=== PATIENT | female | born 1950 | race Caucasian/White ===

== ENCOUNTER → 2020-11-30 13:24 | Outpatient (BNVA) | payer MEDICARE, SELFPAY | PROVIDERS: Visit Provider Family Medicine | DX: M25.551 Pain in right hip (principal); G89.29 Other chronic pain | CPT/HCPCS: 73502 ==

== ENCOUNTER → 2020-12-19 16:08 | Day surgery (SDC) | payer MEDICARE, SELFPAY | PROVIDERS: Visit Provider Specialist | DX: Z01.818 Encounter for other preprocedural examination (principal) | CPT/HCPCS: 93005 ==

== ENCOUNTER → 2020-12-19 17:00 | Outpatient (BNVA) | payer MEDICARE, SELFPAY | PROVIDERS: Referring Provider Family Medicine; Visit Provider Specialist | DX: M25.551 Pain in right hip (principal); M16.11 Unilateral primary osteoarthritis, right hip; Z01.818 Encounter for other preprocedural examination; Z20.822 Contact with and (suspected) exposure to COVID-19 | CPT/HCPCS: 87635 ==

== ENCOUNTER 2020-12-25 14:42 | Observation (INO) | payer MEDICARE, SELFPAY ==
--- NOTE | 2020-12-19 15:37 | P.ANESASSM_ITS ---
Pre-Anesthetic Assessment Pre-Anesthetic Assessment: Height/Weight: Height 1.65 m Preop Diagnosis: Hip pain Proposed Procedure: Operation Date: 12/25/20 07:45 Proposed Procedures p Total Hip Arthroplasty 05972 M16.9(Right) - Edith Driver MD Familial anesthetic complications: patient vomits immediately upon awakening (The very instant i wake up i always vomit) Social: Social History: No alcohol and No tobacco Exam: Pre-Anes Outpt Exam: alert, oriented x 3, clear to auscultation bilaterally and regular rate & rhythm Airway: Cervical ROM: WNL MP: 2 Dentition: Full CV/HEM: CV/HEM: CAD (stents in 2016 (was a deformity, not plaque)), HTN and DE (mild 2016) Comments: able to acheive 4 METS 6 months ago before pain became too bad Metabolic: Metabolic: Hyperlipidemia and Thyroid Musc/skel: Musc/skel: OA/DJD Anesthetic Plan: ASA status: 3 Anesthesia: General Risk of > 500 ml blood loss (7ml/kg in children): Yes, adequate IV access and fluids planned Other Pertinent Information: patient unfortunately took plavix late at [facility] on 12/18, so will not be 7 days PFSH Anesthesia PFSH: Social History Smoking and tobacco status: former smoker (30 years ago ) Data Anesthesia Cardiac Studies: No Data to Display
[2020-12-19 15:49] VITALS: BMI 26.9
--- NOTE | 2020-12-19 16:08 | ECG_ITS ---
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 Measurements Intervals [place] Rate: 77 P: 64 OR: 170 QRS: -11 QRSD: 66 T: 46 QT: 339 QTc: 386 Interpretive Statements SINUS RHYTHM LOW QRS VOLTAGE [QRS DEFLECTION < 0.5/1.0 mV IN LIMB/CHEST LEADS] ANTERIOR MYOCARDIAL INFARCTION , PROBABLY OLD [40+ ms Q WAVE AND/OR ST/T ABNORMALITY IN V3/V4] INFERIOR MYOCARDIAL INFARCTION , OF INDETERMINATE AGE [40+ ms Q WAVE AND/OR ST/T ABNORMALITY IN II/aVF] No previous ECG available for comparison Electronically Signed On 12-19-2020 19:44:31 CDT by Kalpesh Roman M.D. [id number]
[2020-12-19 16:21] LABS: Add Urine Microscopic? NO; Charge for UA Resulting for Rev
[2020-12-19 16:23] LABS: Basophils % 0.9 %; Eosinophils # 0.1 10^3/uL (0.0-0.8); Eosinophils % 2.9 %; Hematocrit 38.8 % (37.0-47.0); Hemoglobin 12.5 g/dL (11.5-15.3); Lymphocytes # 1.3 10^3/uL (0.8-4.8); Lymphocytes % 28.9 %; Mean Corpuscular HGB Conc 32.2 g/dL (30.0-36.0); Mean Corpuscular Volume 99.2 fl (81-99); Mean Platelet Volume 12.7 fL (7.4-10.4); Monocytes # 0.4 10^3/uL (0.2-0.9); Neutrophils # 2.64 10^3/uL (1.8-7.7); Neutrophils % 58.1 %; Nucleated Red Blood Cells % 0 %; Platelet Count 178 10^3/cmm (130-400); Red Blood Count 3.91 10^6/uL (4.1-5.3); Red Cell Distribution Width 12.4 % (12.1-15.1); White Blood Count 4.5 10^3/uL (4.0-10.0)
[2020-12-19 16:34] LABS: Bilirubin Urine Neg (Negative); Blood Urine Neg (Negative); Glucose Urine UA Norm (Normal); Ketones Urine Negative (Negative); Leukocyte Esterase Urine Negative (Negative); Nitrate Urine Negative (Negative); Protein Urine Neg (Negative); Urine Appearance Clear (CLEAR); Urine Color Yellow (Yellow); Urobilinogen Urine Neg (Negative); pH Urine 5 (5-7)
[2020-12-19 16:45] LABS: Alanine Aminotransferase 10 U/L (0-33); Alkaline Phosphatase 85 IU/L (35-105); Anion Gap 12.4 (5-19); Aspartate Amino Transferase 13 U/L (0-32); Blood Urea Nitrogen 13 mg/dL (8-23); Calcium 9.1 mg/dL (8.5-10.5); Carbon Dioxide 29 mmol/L (22-29); Chloride 103 mmol/L (98-107); Globulin 2.3 g/dL (1.3-4.6); Glomerular Filtration Rate 122.7 mL/min (90-130); Glucose 94 mg/dL (65-115); Osmolality Calculated 292 mOsm/kg (285-295); Potassium 3.4 mmol/L (3.5-5.1); Sodium 141 mmol/L (136-145); Total Bilirubin 0.3 mg/dL (0.15-1.2); Total Protein 6.3 g/dL (6.6-8.7)
[2020-12-25] VITALS (42 sets, daily range): BP systolic 134–171; BP diastolic 68–93; PULSE 62–94; RESP 10–18; TEMP 36.3–36.7; O2SAT 85–100; BMI 26.9
[2020-12-25] MEDS: CELEcoxib 200 mg Capsule 400 MG PO (06:34)
[2020-12-25] MEDS: acetaminophen 1,000 MG/100 ML PIGGYBACK 400 MG IV ×2 (06:34→17:38)
--- NOTE | 2020-12-25 06:34 | P.ANESUD_ITS ---
Pre-Anesthetic Update Pre-Anesthetic Assessment: Date of Surgery/Procedure: 12/25/20 Preop Mila gnosis: Severe osteoarthritis right hip Proposed Procedure: Operation Date: 12/25/20 07:00 Proposed Procedures p Total Hip Arthroplasty 05118 M16.9(Right) - Edith Driver MD Any changes to Pre-Anesthetic Assessment?: No Last Intake: Intake Last Liquid Date 12/24/20 Last Liquid Time 00:00 Last Solid Date 12/24/20 Last Solid Time 18:00 Vitals: Temperature 97.5 F L 12/25/20 06:14 Temperature Source Temporal Artery S can 12/25/20 06:14 Pulse Rate 94 12/25/20 06:14 Respiratory Rate 18 12/25/20 06:14 Blood Pressure 151/93 12/25/20 06:14 Blood Pressure Liliana n 112 12/25/20 06:14 Pulse Oximetry 92 12/25/20 06:14 Oxygen Delivery Me thod 12/25/20 06:15 Exam: Pre-Anes Outpt Exam: alert, oriented x 3, clear to auscultation bilaterally and regular rate & rhythm Cardiac Studies: No Data to Display
[2020-12-25] MEDS: sodium chloride 0.9% 1,000 ML 30 ML IV (06:45)
--- NOTE | 2020-12-25 06:55 | W.PM.OPSUD ---
Surgery/Procedure H&P Update DATE OF PROCEDURE: December 25, 2020 DATE H&P PERFORMED: 12/19/20 H&P UPDATE INFORMATION: I have reviewed H&P completed within last 30 days, I have examined patient prior to procedure, No changes to prior documentation and H&P is in [facility] on date indicated PREOP DIAGNOSIS: Severe osteoarthritis right hip PLANNED PROCEDURE: Operation Date: 12/25/20 07:00 Proposed Procedures p Total Hip Arthroplasty 81511 M16.9(Right) - Edith Driver MD Related Problem List Diagnoses (1) Primary osteoarthritis of right hip:
[2020-12-25] MEDS: scopolamine 1.5 Patch 1 PATCH TRANSDERMA (06:58)
[2020-12-25] MEDS: clindamycin 600 MG/50 ML PREMIX 100 MG IV (08:22)
[2020-12-25] MEDS: ceFAZolin 1,000 mg SDV 1000 MG IRRIGATION (08:57)
[2020-12-25] MEDS: vancomycin 1,000 MG SDV 1000 MG XX (09:15)
--- NOTE | 2020-12-25 11:19 | XRR_ITS ---
PROCEDURE INFORMATION: Exam: XR Pelvis Exam date and time: 12/25/2020 11:19 AM Age: 70 years old Clinical indication: Device placement; Other: Right total hip arthroplasty; Prior surgery; Surgery date: Post-operative (0-2 days); Additional info: Right total hip arthroplasty, low ap pelvis TECHNIQUE: Imaging protocol: XR pelvis. Views: 1 or 2 view. Total images: 1 COMPARISON: CR XR hip RT 2-3V wo/w pel* [id number] 11/30/2020 1:36 PM FINDINGS: Tubes, catheters and devices: The prosthesis appears near anatomic in positioning. No parallel lucencies adjacent to the prosthesis are seen to suggest loosening. No acute fractures, subluxation, nor dislocation. Bones/joints: Right hip arthroplasty is present. Mild degenerative changes in the left hip joint. Soft tissues: Skin evelio subcutaneous emphysema are present from recent surgery. XR/XR pelvis 1-2V* [id number] IMPRESSION: 1. Status post recent right hip arthroplasty without complication. 2. Mild degenerative changes in the left hip joint.
--- NOTE | 2020-12-25 11:37 | P.OP_ITS ---
Operative Report Date of procedure: December 25, 2020 Pre-op Diagnosis: Severe osteoarthritis right hip Post-op diagnosis: same Post-op Findings: Severe limitation of motion with essentially no range of motion preoperatively. Severe osteophyte formation. Anterior cyst into the pelvis Procedure Done: Right total hip arthroplasty Implants: The Burt total hip system with the following implants: A 52 mm by E Trident II cluster hole acetabular shell with screw fixation x3 (30 mm, 15 mm, and 15 mm screws), an MDM cementless liner 42 mm inner diameter by E alpha code and Accolade II size 4 127 degree neck angle hip stem with a 28 mm outer diameter +0 mm neck offset and a rastafari X3 insert size 28 mm inner diameter by 42E with [employer] beaded cable and sleeve set size 2.0 mm Specimens removed/disposition: None Pathology: none sent Surgeon: Edith Driver Associate Product Manager: Cecile Barnes Anesthesia: General (Intubated, ASA 3) Estimated blood loss (mL): 300 IV fluids (mL): 1,500 Urine output (mL): 250 Complications: None Findings: Severe degenerative osteoarthritis with large dislocation. Of note, there was a large anterior cyst in the anterior acetabular wall which I was able to place my finger and feel no bone below into the abdomen. There was no bleeding and no sharp instrument was passed. Osteophytes were removed to allow access to the hip joint. Postoperatively, the patient was stable at 90 degrees of flexion with 60 degrees of internal rotation and 30 degrees of adduction. she was also stable to external rotation. Leg lengths appear to be equal. Condition: stable Disposition: PACU (Then to floor for postoperative rehabilitation and pain management) Brief History: This 70-year-old woman presented to my office with severe difficulty ambulating. Preoperative assessment also demonstrated no range of motion. After discussion with the patient, her only option for improvement was total hip arthr oplasty. The risks and complications of this were discussed with her. Questions were answered. Consents were signed. She was found on x-ray to have severe degenerative osteoarthritis with large osteophytes. Procedure: Patient was brought to the operating theater. She was transferred to the operating room table and subsequently administered a general anesthesia per ET tube, ASA 3. Following administration of adequate anesthesia, the patient was placed in full lateral position and held in position with a pegboard. Also, the patient had minimal movement in her right lower extremity preoperatively. The patient's lower extremity was then prepped and draped in usual fashion utilizing DuraPrep. It was draped free. Following prepping and draping a surgical pause was performed. At the time of surgical pause, we identified the site and side of surgery. We also identified the patient and preoperative surgical markings. Confirmation was made of equipment availability. Additionally, the patient's preoperative IV antibiotic, clindamycin 600 mg, was confirmed as being given in a timely fashion and being the appropriate antibiotic. She received TXA 1 g preoperatively as well. Following the surgical pause, an incision was made centering over the patient's greater trochanter continuing proximally and distally as necessary to allow access to the hip joint. Dissection continued through skin and soft tissues using a scalpel, and hemostasis was obtained using electrocautery. The tensor fascia denisha was identified and incised longitudinally. Sciatic nerve was identified and protected throughout the surgical procedure. A Charnley U retractor was placed after the tensor fascia denisha had been incised longitudinally, and the sciatic nerve had been identified. The piriformis muscle was identified and tagged. Piriformis muscle along with the remaining short external rotators were then incised from the posterior aspect of the hip joint. These were retracted posteriorly. The capsule was entered in a T-type fashion with the edges being tagged. The hip was not able to be internally rotated even following resection of the piriformis and opening of the capsule. Large osteophytes were removed from superior and posterior acetabulum. These essentially covered the entire femoral head. Once these were removed, the hip was able to be dislocated. Following hip dislocation, a femoral neck osteotomy was accomplished in the appropriate position. We then evaluated the acetabulum. The femur was retracted anteriorly. Soft tissues were retracted and the labrum was removed. It was difficult to obtain exposure secondary to the degree of osteoarthritic change. We then began reaming. Exposure was noted to be difficult secondary to the large osteophytes. Once the femoral head was removed, there was noted to be significant loss of cartilage over the femoral head and over the acetabulum. Osteophytes continue to be removed. We reamed to 51 mm to allow for a size 52 mm acetabular shell. Upon evaluation of the acetabulum, there was an anterior cyst which eventually entered into the abdomen. No sharp instrument was passed into this area. We reamed to cancellous bone with emphasis posteriorly secondary to the cyst. The acetabular component was impacted into position. It was noted that the acetabulum matched the bony anatomy, but there was soft and decreased bone secondary to the large osteophytes. Osteophytes removed included both anterior and posterior osteophytes. The cup was noted to seat nicely and had good fixation upon impact. Secondary to the quality of the bone, 3 screws were placed uneventfully. A good bite was obtained from each screw. The dome hole plug was placed. The MDM cementless liner was impacted into position and care was taken to assure that it completely seated. Also, we confirmed that the acetabular insert was completely seated prior to addressing the femur. Attention was directed to the proximal femur. The proximal femur was lifted out of the wound. A canal finder was passed, and we then used the reamer to lateralize. We then began broaching. We broached sequentially and had excellent fit and fill with the size 4 Accolade II 127 degree femoral component. A trial reduction was accomplished initially with a -2.7 mm offset femoral head and subsequently with a +0 mm offset femoral head once the size 4 broach was placed in position. The patient was stable with this construct, and it was not felt that we had increased her leg length. With this in place, we had the above stabilities, and at that time, we felt that we had restored leg lengths. We also felt that we had excellent stability noted above. Therefore, trial components were removed after the hip was dislocated. Palpation of the proximal femur demonstrated that there was a defect along the posterior calcar. Although this did not extend during the surgical procedure, we elected to place a Dall-Miles cable to serve as a stop from any propagation down into the proximal femur. This Dall-Miles cable was placed uneventfully. The size 4 Accolade II 127 degree neck angle hip stem was impacted into position without difficulty and onto this was placed a +0 mm offset by 28 mm outer diameter femoral head inside of the MDM size 42E insert with a 28 mm inner diameter. With this construct, we had the above-noted stability. The stem was noted to seat nicely prior to placement of the femoral head. The wound was copiously irrigated with Betadine. At this time, with all components in approp riate position, the hip was reduced. Following reduction of the prosthesis once again, we confirmed the stability of the hip. Leg lengths were also felt to be satisfactory. Being satisfied with the prosthesis, attention was directed to closure. Closure was accomplished with 0 Vicryl in the capsular tissues. Piriformis was reattached with 0 Vicryl as well. Tensor fascia denisha was closed with 0 Vicryl in an interrupted fashion. The subcutaneous tissues were closed with a deep layer of 0 Vicryl followed by 2-0 Monocryl. Vancomycin powder and a Gelfoam thrombin mixture was placed into the wound as well. The skin was closed with a running 3-0 Monocryl followed by Dermabond, Prineo, and OpSite. The patient was placed in an abduction pillow. She was returned the Recovery Room in a satis factory condition and will be discharged to the floor for postoperative rehabilitation and pain management. There were no complications. Associated Problem List Diagnoses (1) Primary osteoarthritis of right hip:
--- NOTE | 2020-12-25 14:51 | PC.NURSE ---
Report given and patient transferred to [facility] via [facility]
[2020-12-25] MEDS: fentaNYL 50 mcg/mL INJ 2mL IVP (15:00)
--- NOTE | 2020-12-25 15:35 | ANE.PACU2 ---
Inpatient post-anesthesia follow up: Airway intact: Yes Vital signs: Temperature 97.3 F Pulse Rate 64 Respiratory Rate 16 Blood Pressure 171/91 Pulse Oximetry 97 Oxygen Delivery Me thod Room Air Oxygen Flow Rate 10 Fraction of Inspir ed Oxygen Hydration adequate: Yes Nausea and vomiting: No Pain level: 2 Mental status: Baseline
[2020-12-25] MEDS: chlorhexidine gluconate 0.12% Btl 473 mL 30 ML MUCOUS MEM ×2 (17:41→21:55)
[2020-12-25] MEDS: iron polysaccharide complex 150 mg Capsule PO (17:43)
[2020-12-25] MEDS: sennosides-docusate Tablet 2 TAB PO (17:43)
[2020-12-25] MEDS: calcium carbonate 500 mg Chew Tablet 1000 MG PO (17:43)
[2020-12-25] MEDS: mupirocin oint 22 gm 1 APPLIC NASAL (17:45)
[2020-12-25] MEDS: clindamycin 900 MG/50 ML PREMIX 100 MG IV (17:57)
[2020-12-25] MEDS: CELEcoxib 200 mg Capsule PO (18:28)
--- NOTE | 2020-12-25 18:30 | PC.NURSE ---
Shift Note Frequent safety and comfort rounds continue. Orders and/or nursing care completed as indicated. Patient monitored for response to intervention and treatment(s). Education provided includes weight bearing as tolerated on patient's right hip as patient is fresh postop hip replacement. Patient verbalized understanding. Patient is currently resting comfortably in bed. Will continue to monitor.
[2020-12-25] MEDS: atorvastatin 40 mg Tablet PO (21:47)
[2020-12-25] MEDS: cyclobenzaprine 10 mg Tablet PO (21:48)
[2020-12-25] MEDS: clopidogrel 75 mg Tablet PO (21:48)
[2020-12-25] MEDS: carvedilol 6.25 mg Tablet PO (21:48)
[2020-12-25] MEDS: levothyroxine 88 mcg Tablet PO (21:48)
[2020-12-26] MEDS: acetaminophen 1,000 MG/100 ML PIGGYBACK 400 MG IV ×2 (01:07→09:09)
[2020-12-26] MEDS: clindamycin 900 MG/50 ML PREMIX 100 MG IV ×2 (01:39→10:28)
[2020-12-26 02:30] VITALS: BP 99/62; PULSE 86; RESP 18; TEMP 36.6; O2SAT 97
[2020-12-26] MEDS: CELEcoxib 200 mg Capsule PO (06:32)
[2020-12-26 07:53] VITALS: BP 97/56; PULSE 78; RESP 16; TEMP 36.8; O2SAT 96
[2020-12-26 08:10] LABS: Basophils % 0.3 %; Eosinophils % 0.3 %; Hematocrit 32.1 % (37.0-47.0); Hemoglobin 10.2 g/dL (11.5-15.3); Lymphocytes # 1.3 10^3/uL (0.8-4.8); Lymphocytes % 19.5 %; Mean Corpuscular HGB Conc 31.8 g/dL (30.0-36.0); Mean Corpuscular Hemoglobin 31.8 pg (28.0-34.0); Mean Platelet Volume 12.5 fL (7.4-10.4); Monocytes # 0.8 10^3/uL (0.2-0.9); Monocytes % 11.8 %; Neutrophils # 4.48 10^3/uL (1.8-7.7); Neutrophils % 67.8 %; Nucleated Red Blood Cells % 0 %; Platelet Count 164 10^3/cmm (130-400); Red Blood Count 3.21 10^6/uL (4.1-5.3); Red Cell Distribution Width 12.8 % (12.1-15.1); White Blood Count 6.6 10^3/uL (4.0-10.0)
[2020-12-26 08:33] LABS: Anion Gap 11.1 (5-19); Blood Urea Nitrogen 10 mg/dL (8-23); Calcium 8.6 mg/dL (8.5-10.5); Carbon Dioxide 27 mmol/L (22-29); Chloride 105 mmol/L (98-107); Glomerular Filtration Rate 83.2 mL/min (90-130); Glucose 105 mg/dL (65-115); Osmolality Calculated 287 mOsm/kg (285-295); Potassium 4.1 mmol/L (3.5-5.1); Sodium 139 mmol/L (136-145)
[2020-12-26] MEDS: aspirin 325 mg EC Tablet PO (09:05)
[2020-12-26 09:06] VITALS: RESP 18; O2SAT 96
[2020-12-26] MEDS: multivitamin therapeutic Tablet 1 TAB PO (09:06)
[2020-12-26] MEDS: oxyCODONE 5 mg IR Tab/Cap PO (09:06)
[2020-12-26] MEDS: calcium carbonate 500 mg Chew Tablet 1000 MG PO (09:08)
[2020-12-26] MEDS: cholecalciferol (vitamin D3) 1,000 unit Tablet 1000 UNIT PO (09:08)
[2020-12-26] MEDS: sennosides-docusate Tablet 2 TAB PO (09:08)
[2020-12-26] MEDS: iron polysaccharide complex 150 mg Capsule PO (09:08)
--- NOTE | 2020-12-26 09:34 | PC.CHAP ---
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 [] Patient/Family/Request visit [] Outpatient visit [] Follow-up visit [] Physician referral [] Code/Alert [x] Routine visit [] Staff referral [] Actively dying [] Patient sleeping [] Family support [] [] Out of room [] Palliative care [] [] Receiving care in room [] Pre-surgical visit [] Trauma [] Long length of stay [] ICU visit [] Other: Relational/Emotional Strength [x] Patient feels connected with others/family/visitors/staff [] Distress [] Loneliness/isolation [] Abandonment Spirituality of Patient [x] Person of Felecia [] Attends Rastafarian of their Felecia [x] Believes in Prayer [] Reads Bible or Oriental Orthodox materials [] There are Spiritual issues to be addressed Route Returner Interventions [x] Prayer [] Active listening [x] Non-anxious presence [x] Spiritual/emotional support [] Crisis/trauma care [] Spiritual counseling [] Bereavement support [] Provided bereavement packet [] Provided Bible/devotional materials [] Provided toy/stuffed animal, coloring book to patient or family member [] Provided Communion [] Anointing/[place] [] Salvation [x] Completed spiritual assessment [] Other: Impact on Illness or Injury [] Angry [] Fearful [] Anxious [] Often cries [] Exhaustion [] Unable to work [] Unable to attend gnosticist [] Unable to walk/stand [] Unable to read [] Unable to drive [] Unable to eat/drink [] Unable to sleep [] Unable to be with family [] Patient intubated [] Other: Summary patient has little pain Time spent with patient 15 min xxxxxxxxxxxxxxxxxxxxxxxxxxxxxxxxxxxxxxxxxxxxxxxxxxxxxxxxxxxxxxxxxxxxxxxxxxxxxxxxxxxxxx
[2020-12-26 11:51] VITALS: BP 91/56; PULSE 116; RESP 16; TEMP 37; O2SAT 100
--- NOTE | 2020-12-26 11:55 | PM.DCS ---
Discharge Providers Date of Admission: 12/25/20 14:42 Date of Discharge: December 26, 2020 Attending Provider at Admission: Edith Driver MD Attending Provider at Discharge: Edith Driver MD Diagnoses at Discharge Discharge Diagnosis (1) Primary osteoarthritis of right hip: Status: Acute Permanent problem details: Right total hip arthroplasty Implants: The Burt total hip system with the following implants: A 52 mm by E Trident II cluster hole acetabular shell with screw fixation x3 (30 mm, 15 mm, and 15 mm screws), an MDM cementless liner 42 mm inner diameter by E alpha code and Accolade II size 4 127 degree neck angle hip stem with a 28 mm outer diameter +0 mm neck offset and a pentecostalism X3 insert size 28 mm inner diameter by 42E with Dall-Miles beaded cable and sleeve set size 2.0 mm Reason for Visit Reason for Visit: right hip arthroplasty Hospital Course Hospital Course This 70-year-old woman was admitted for observation following same-day right total hip arthroplasty. The procedure performed is as follows: Right total hip arthroplasty utilizing the Burt total hip system with the following implants: A 52 mm by E Trident II cluster hole acetabular shell with screw fixation x3 (30 mm, 15 mm, and 15 mm screws), an MDM cementless liner 42 mm inner diameter by E alpha code and Accolade II size 4 127 degree neck angle hip stem with a 28 mm outer diameter +0 mm neck offset and a pentecostalism X3 insert size 28 mm inner diameter by 42E with Dall-Miles beaded cable and sleeve set size 2.0 mm. The patient had an uneventful surgical procedure and was brought into the hospital postoperatively for postoperative observation, follow-up laboratory testing, and initiation of physical therapy as well as pain management. On the first postoperative day, patient was doing well. She was ambulating with physical therapy, and they thought she was safe for discharge. She was neurologically intact. She was sitting up in a chair. There were no complications. No evidence of DVT. Dressing was left intact. The patient was comfortable and felt prepared for discharge. She will be spending the night here in town at [place] [employer] with her family, and she will then return home. Physical Exam Const: COMMON NORMALS: no acute distress, average body habitus, patient oriented x3 and alert GENERAL APPEARANCE: cooperative and comfortable ORIENTATION/CONSCIOUSNESS: Yes awake HENMT: COMMON NORMALS: normocephalic and atraumatic HEAD & SCALP: normocephalic and atraumatic Eye: GENERAL EYE: appearance normal, both eyes and all related structures Chest: COMMONS NORMALS: normal inspection of the chest Resp: COMMON NORMALS: normal respiratory effort EFFORT & INSPECTION: Yes able to speak in complete sentences and Yes symmetric chest movement Extremity: RIGHT LOWER EXTREMITY: Yes hip joint Right hip: Yes inspection (No significant swelling or pain.), Yes ROM (Not evaluated.) and Yes neurovascular exam (Intact distally including dorsiflexion of the foot.) Neuro: COMMON NORMALS: patient oriented x3 SENSORIUM/ORIENTATION: Yes alert Psych: COMMON NORMALS: mental status grossly normal APPEARANCE: Yes grossly normal ATTITUDE: Yes calm and Yes engaged ATTENTION/CONCENTRATION: Yes attention grossly intact Skin: COMMON NORMALS: no rashes or lesions noted GENERAL SKIN EXAM: no rashes or lesions noted Urinary Catheter Management^: [place]: Cath Placed During This Visit: yes, but has since been removed by the nurse Reason for Continuing Indwelling Catheter: Perioperative Use in Selected Surgeries Urinary Catheter Date of Insertion: 12/25/20 Urinary Catheter Time of Insertion: 08:48 Date Urinary Catheter Removed: 12/26/20 Time Urinary Catheter Discontinued: 06:39 Discharge Data Data Completed and Pending: Completed Studies During Hospitalization Category Date Time Status XR pelvis 1-2V* 7 2170 Routine Exams 12/25/20 11:19 Completed Labs from last 24 hours 12/26/20 12/26/20 07:51 07:51 WBC 6.6 RBC 3.21 L Hgb 10.2 L Hct 32.1 L MCV 100.0 H MCH 31.8 MCHC 31.8 RDW 12.8 Plt Count 164 MPV 12.5 H Neut % (Auto) 67.8 Lymph % (Auto) 19.5 [place] % (Auto) 11.8 Eos % (Auto) 0.3 Baso % (Auto) 0.3 Neut # (Auto) 4.48 Lymph # (Auto) 1.3 [place] # (Auto) 0.8 Eos # (Auto) 0.0 Baso # (Auto) 0.0 Nucleated RBC % (a uto) 0 Nucleated RBCs # 0.0 Sodium 139 Potassium 4.1 Chloride 105 Carbon Dioxide 27 Anion Gap 11.1 BUN 10 Creatinine 0.7 GFR Calculation 83.2 L Glucose 105 Calculated Osmolal ity 287 Calcium 8.6 Vitals: Last Vital Signs Temp 98.6 F 12/26/20 11:51 Pulse 116 H 12/26/20 11:51 Resp 16 12/26/20 11:51 BP 91/56 12/26/20 11:51 Pulse Ox 100 12/26/20 11:51 Discharge Plan Discharge Patient Disposition: Home Health Service Condition: Stable Prescriptions: New oxycodone 5 mg Tablet 5 mg PO Q4H PRN (Reason: Moderate Pain) 7 Days Qty: 30 RF: 0 acetaminophen 500 mg Tablet 1,000 mg PO Q8H Qty: 0 RF: 0 aspirin 325 mg Tablet,Delayed Release (Dr/Ec) 325 mg PO DAILY 30 Days Qty: 0 RF: 0 celecoxib 200 mg Capsule 200 mg PO DAILY 30 Days Qty: 30 RF: 0 Continued atorvastatin 40 mg tablet 40 mg PO BEDTIME RF: 0 clopidogrel 75 mg tablet 75 mg PO BEDTIME RF: 0 levothyroxine 88 mcg capsule 88 mcg PO BEDTIME RF: 0 carvedilol 6.25 mg tablet 6.25 mg PO BEDTIME RF: 0 cyclobenzaprine 10 mg tablet 10 mg PO BEDTIME RF: 0 Discontinued ibuprofen [Advil] 200 mg tablet 200 mg PO Q6H PRN (Reason: Pain) RF: 0 Discharge Orders: Discharge Order (Routine); Ordered 12/26/20 Ordered By: Edith Driver Referrals: Edith Driver MD [Physician] - 01/14/21 10:45 am Discharge Diet: Advance as tolerated and Usual diet Discharge Activity: Increase activity as tolerated, Limit activity as instructed, Use walker/crutches as instructed and As per PT/OT instructions Patient Instructions: Opioid Safety Activity Restrictions/Additional Instructions: Posterior hip precautions. Leave dressing in place until it comes off on its own. Work with physical therapy for strengthening, gait training. Discharge Attestations Time Spent in Discharge Care*: greater than 30 min Specific Discharge Activities: educating patient, documenting/other paperwork and evaluating patient/reviewing data Quality Metrics Clinical Quality Measures During this hospital stay, did patient experience: None Coding Level of Care Code Acute Chg FW DC note Exam Detailed Diagnoses Primary osteoarthritis of right hip M16.11
[2020-12-26 14:35] VITALS: BP 91/56; PULSE 91; RESP 16; TEMP 37; O2SAT 100
--- NOTE | 2020-12-27 12:31 | PC.SOCIAL ---
discharge follow up call made. patient picked up prescriptions and is taking medication as prescribed. had a rough night, tried not to take pain medication but took early this am and had tremendous relief from pain. pt is aware of follow up appointment with dr. carbajal.
== END 2020-12-26 14:35 | disposition home health service (06) ==
LOC: MEDSURG 14:44
PROVIDERS: Admitting Provider Specialist; Visit Provider Specialist
PROC: (CPT 27130; principal; 2020-12-25 07:00)
DX: M16.11 Unilateral primary osteoarthritis, right hip (principal); I25.10 Atherosclerotic heart disease of native coronary artery without angina pectoris; Z95.5 Presence of coronary angioplasty implant and graft; I10 Essential (primary) hypertension; I25.2 Old myocardial infarction; E78.5 Hyperlipidemia, unspecified; M19.90 Unspecified osteoarthritis, unspecified site; Z87.891 Personal history of nicotine dependence; E03.9 Hypothyroidism, unspecified
CPT/HCPCS: 27130; 36415; 72170; 80048; 80053; 81003; 85025; 96374; 97110; 97116; 97161; 97165; 97530; A9281; C1713; C1776; G0378; J0690; J1100; J1170; J1200; J1885; J2370; J2405; J2704; J2710; J3010; J3370; J3490; J7030

== ENCOUNTER → 2021-01-16 10:52 | Outpatient (BNVA) | payer MEDICARE, SELFPAY | PROVIDERS: Visit Provider Specialist | DX: M16.11 Unilateral primary osteoarthritis, right hip (principal); Z96.641 Presence of right artificial hip joint | CPT/HCPCS: 73502 ==

== ENCOUNTER → 2022-07-18 13:43 | Outpatient (BNVA) | payer MEDICARE, SELFPAY | PROVIDERS: PCP Family Medicine; Visit Provider Family Medicine | DX: G89.29 Other chronic pain (principal); M16.12 Unilateral primary osteoarthritis, left hip | CPT/HCPCS: 73502 ==

== ENCOUNTER → 2022-09-08 13:41 | Outpatient (BNVA) | payer MEDICARE, SELFPAY | PROVIDERS: PCP Family Medicine; Visit Provider Specialist | DX: M16.12 Unilateral primary osteoarthritis, left hip (principal); M25.552 Pain in left hip | CPT/HCPCS: 36415; 73502; 80053; 85025; 99214 ==

== ENCOUNTER → 2022-10-02 14:34 | Outpatient (BNVA) | payer MEDICARE, SELFPAY | PROVIDERS: PCP Family Medicine; Referring Provider Specialist; Visit Provider Family Medicine | DX: Z01.818 Encounter for other preprocedural examination (principal) | CPT/HCPCS: 81000 ==

== ENCOUNTER 2022-10-07 10:16 | Observation (INO) | payer MEDICARE, SELFPAY ==
[2022-10-02 13:28] VITALS: BMI 26.9
--- NOTE | 2022-10-02 13:37 | ECG_ITS ---
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 Measurements Intervals [place] Rate: 86 P: 9 PA: 134 QRS: 66 QRSD: 91 T: 45 QT: 351 QTc: 421 Interpretive Statements SINUS RHYTHM LOW QRS VOLTAGE IN EXTREMITY LEADS [QRS DEFLECTION < 0.5 mV IN LIMB LEADS] POSSIBLE ANTERIOR MYOCARDIAL INFARCTION , OF INDETERMINATE AGE [30 ms Q WAVE IN V3/V4, OR R < 0.2 mV IN V4] Compared to ECG 12/19/2020 16:16:38 No significant changes Electronically Signed On 10-02-2022 16:34:59 CDT by Kourtney Cristina M.D. [id number]
--- NOTE | 2022-10-02 14:22 | ANES.PREANE2 ---
Pre-Anesthetic Assessment Height/Weight: Height 1.65 m Weight 73.482 kg Operation Date: 10/07/22 07:00 Proposed Procedures p LEFT TOTAL HIP ARTHROPLASTY 56026, M16.9(Left) - Edith Driver MD Familial anesthetic complications: none Was Beta Amanda taken within 24 hours: Yes Was Clonidine taken within 24 hours: N/A Social No alcohol and No tobacco Exam alert, oriented x 3, clear to auscultation bilaterally and regular rate & rhythm Airway Submandibular: within normal limits Cervical ROM: within normal limits Mallampati: Class II Dentition: chipped Metabolic Hyperlipidemia and Thyroid Disease [facility] [place] Osteoarthritis/DJD Anesthetic Plan ASA status: 3 Anesthesia: General (Pt. refuses spinal) Medications/Allergies Home Medications Medication Instructions Recorded Confirmed Last Taken Type atorvastatin 40 mg tablet 40 mg PO BEDTIME 12/19/20 10/02/22 12/24/20 History carvedilol 6.25 mg tablet 6.25 mg PO BEDTIME 12/19/20 10/02/22 Unknown History clopidogrel 75 mg tablet 75 mg PO BEDTIME 12/19/20 10/02/22 12/18/20 History cyclobenzaprine 10 mg tablet 10 mg PO BEDTIME 12/19/20 10/02/22 12/24/20 History levothyroxine 88 mcg capsule 88 mcg PO BEDTIME 12/19/20 10/02/22 12/24/20 History aspirin 81 mg tablet,delayed 81 mg PO DAILY 09/08/22 10/02/22 Unknown History release Allergies Allergy/AdvReac Type Severity Reaction Status Date / Time No Known Allergies Allergy Verified 09/08/22 14:09 [facility] Anesthesia Medical History Hypertension Hypothyroidism Pain in right hip Social History Smoking and tobacco status: former smoker Data Anesthesia Cardiac Studies: No Data to Display
[2022-10-07] VITALS (17 sets, daily range): BP systolic 111–165; BP diastolic 58–90; PULSE 68–94; RESP 12–20; TEMP 35.7–37.2; O2SAT 95–100
[2022-10-07] MEDS: CELEcoxib 200 mg Capsule 400 MG PO (06:14)
[2022-10-07] MEDS: gabapentin 300 mg Capsule PO (06:14)
[2022-10-07] MEDS: acetaminophen 1,000 MG/100 ML PIGGYBACK 400 MG IV ×3 (06:15→22:45)
[2022-10-07] MEDS: sodium chloride 0.9% 1,000 ML 30 ML IV (06:15)
--- NOTE | 2022-10-07 07:37 | W.PM.OPSUD ---
Surgery/Procedure H&P Update DATE OF PROCEDURE: October 07, 2022 DATE H&P PERFORMED: 10/02/22 H&P UPDATE INFORMATION: I have reviewed H&P completed within last 30 days, I have examined patient prior to procedure, No changes to prior documentation and H&P is in [facility] EMR on date indicated PREOP DIAGNOSIS: Severe degenerative osteoarthritis left hip PLANNED PROCEDURE: Operation Date: 10/07/22 07:00 Proposed Procedures p LEFT TOTAL HIP ARTHROPLASTY 26734, M16.9(Left) - Edith Driver MD Related Problem List Diagnoses (1) Primary osteoarthritis of left hip:
[2022-10-07] MEDS: tranexamic acid 1,000 mg/10mL SDV 1000 MG (08:25)
[2022-10-07] MEDS: ceFAZolin 1,000 mg SDV 1000 MG IRRIGATION (08:32)
--- NOTE | 2022-10-07 08:32 | P.ANESUD_ITS ---
Pre-Anesthetic Update Pre-Anesthetic Assessment: Date of Surgery/Procedure: 10/07/22 Preop Mila gnosis: Severe degenerative osteoarthritis left hip Proposed Procedure: Operation Date: 10/07/22 07:00 Proposed Procedures p LEFT TOTAL HIP ARTHROPLASTY 38360, M16.9(Left) - Edith Driver MD Any changes to Pre-Anesthetic Assessment?: No Last Intake: Intake Last Liquid Date 10/06/22 Last Liquid Time 20:00 Last Solid Date 10/06/22 Last Solid Time 16:30 Vitals: Temperature 97.8 F 10/07/22 06:07 Temperature Source Temporal Artery S can 10/07/22 06:07 Pulse Rate 94 10/07/22 06:07 Respiratory Rate 17 10/07/22 06:07 Blood Pressure 163/82 10/07/22 06:07 Blood Pressure Liliana n 109 10/07/22 06:07 Pulse Oximetry 95 10/07/22 06:07 Oxygen Delivery Me thod Room Air 10/07/22 06:07 Exam: Pre-Anes Outpt Exam: alert, oriented x 3, clear to auscultation bilaterally and regular rate & rhythm Cardiac Studies: No Data to Display
[2022-10-07] MEDS: vancomycin 1,000 MG SDV 1000 MG XX (08:35)
--- NOTE | 2022-10-07 10:57 | XR_ITS ---
WS: [id number] EXAMINATION: XR pelvis 1-2V* [id number] REASON FOR EXAM: S/P MARY COMPARISON: 09/08/2022 ORDER DATE: 10/07/2022 11:02 AM FINDINGS: There are stable appearing bilateral total hip arthroplasties with the acute soft tissue changes on t he left indicating recent arthroplasty. XR/XR pelvis 1-2V* [id number] Impression: Recent left hip arthroplasty the usual subcutaneous postsurgical ch anges
--- NOTE | 2022-10-07 11:24 | PM.OP ---
Operative Report Date of procedure: October 07, 2022 Pre-op diagnosis: Severe degenerative osteoarthritis left hip Post-op diagnosis: Severe degenerative osteoarthritis left hip Post-op findings: Severe degenerative osteoarthritis left hip with femoral head deformity and large osteophytes. Procedure done: Left total hip arthroplasty Implants: The Burt total hip system with a size 52 mm by E alpha code Trident II Tritanium acetabular shell with an MDM liner size 42 inner diameter by E alpha code.? A size 4 Accolade II 127? neck angle hip stem with a size 28 mm x -2.7 mm Biolox delta ceramic femoral head and a nondenominational MDM X3 insert size 42E Specimens removed/disposition: Bone, disposed of Pathology: none sent Surgeon: Edith Driver Delivery Rn: [facility] operating room technicians Anesthesia: General (ASA 3, intubated) Estimated blood loss (mL): 500 IV fluids (mL): 2,000 Urine output (mL): 200 Complications: None Findings: Severe degenerative osteoarthritis left hip with large osteophytes. Deformity of the femoral head. Better bone quality than previous surgery. The hip was stable with 90 degrees of flexion with 80 degrees of internal rotation and 30 degrees of adduction. It was also stable to external rotation. Condition: stable Disposition: PACU (Then to floor for postoperative rehabilitation) Brief History: This is an established 71 year old female patient here today for left total hip arthroplasty. Previously, she has undergone right total hip arthroplasty uneventfully. In fact, she is doing very well with her left total hip arthroplasty. The patient states that she has had pain to the left hip for years. Patient states the majority of the pain is to the left groin. Patient describes the pain as sharp. Patient states the hip causes increased pain with ambulation and weight bearing. Patient states that the hip pain has decreased her daily activities. Patient states that she cannot walk more than 10 feet unassisted before she needs to sit down. Patient states that she utilizes a walker for ambulation. Risk and complications were discussed with patient, consents were signed and questions were answered. She wishes to proceed with left total hip arthroplasty. Procedure: Patient was brought to the operating theater.? She was transferred to the operating room table and subsequently administered a general anesthesia, intubated, ASA 3.? Following administration of adequate anesthesia, the patient was placed in full lateral position and held in position with a pegboard.? The patient's left lower extremity was then prepped and draped in usual fashion utilizing DuraPrep.? It was draped free.? Following prepping and draping a surgical pause was performed.? At the time of surgical pause, we identified the site and side of surgery.? We also identified the patient and preoperative surgical markings.?Confirmation was made of equipment availability.? Additionally, the patient's preoperative IV antibiotic, Ancef 2 g, and TXA administration was confirmed as well.? X-rays and the patient's previous operative note were also reviewed. Following the surgical pause, an incision was made centering over the patient's greater trochanter continuing proximally and distally as necessary to allow access to the hip joint.? Dissection continued through skin and soft tissues using a scalpel, and hemostasis was obtained using electrocautery. The tensor fascia denisha was identified and incised longitudinally but there was minimal fascial component to the tensor tissues.? Sciatic nerve was identified and protected throughout the surgical procedure.? A Charnley U retractor was placed after the tensor fascia denisha had been incised longitudinally, and the sciatic nerve had been identified.? The hip was internally rotated, and the piriformis muscle was identified and tagged. Piriformis muscle along with the remaining short external rotators were then incised from the posterior aspect of the hip joint.? These were retracted posteriorly.? The capsule was entered in a T-type fashion with the edges being tagged, and subsequently the hip was dislocated.? Dislocation was quite difficult secondary to the large osteophytes which were present. These were removed from the acetabulum prior to dislocation.? Additionally, there was very thickened labrum as well.? This was excised.? Following hip dislocation, a femoral neck osteotomy was accomplished in the appropriate position.? The head was measured and subsequently disposed of.? We then evaluated the acetabulum. The femur was retracted anteriorly.? Soft tissues were retracted, and the labrum was removed.? We then began reaming.? Once the femoral head was removed, there was noted to be significant loss of cartilage over the head and within the acetabulum.? We reamed to a size 51 to allow for a size 52 acetabular shell.? The acetabulum was impacted into position.? The MDM liner was then impacted into position with care being taken to assure it seated appropriately.? It was noted that the acetabulum matched the bony anatomy.? The cup was noted to seat nicely and had good fixation upon impact. Although the patient required screw fixation of the acetabular component at her prior total hip arthroplasty, bone quality was better in this hip, and screw fixation was not required. Attention was directed to the proximal femur.? The proximal femur was lifted out of the wound.? A canal finder was passed after the box chisel.? The reamer was used to lateralize.? We then began broaching. We broached sequentially and had excellent fit and fill with the size 4 broach. ? A trial reduction was accomplished with a -4.0 mm femoral head.? Trial reduction was accomplished, and the hip was stable. We did feel the patient would be better served and leg lengths more equal with a -2.7 mm femoral head. With this in place, we had the above stabilities, and at that time, we felt that we had equal leg lengths.? We also felt that we had excellent stability noted above. Therefore, trial components were removed after the hip was dislocated.? The size 4 Accolade II 127? neck angle stem was impacted into position without difficulty and onto this was placed a -2.7 mm x 28 mm ceramic femoral head which had been assembled into the MDM insert size 42E.? With a -2.7 mm femoral head, we had the above-noted stability.? The stem was noted to seat nicely prior to placement of the femoral head.? The wound was copiously irrigated with 20 mL of Betadine and 500 mL of normal saline mixed together.? Subsequently, we suctioned this out and irrigated the wound copiously with lactated Ringer's.? At this time, with all components in appropriate position, the hip was reduced.? Following reduction of the prosthesis once again, we confirmed the stability of the hip.? Leg lengths were also felt to be satisfactory. Being satisfied with the prosthesis, attention was directed to closure.? Closure was accomplished with 0 Vicryl in the capsular tissues.? Piriformis was reattached with 0 Vicryl as well.? Tensor fascia denisha was closed with 0 Vicryl in an interrupted fashion.? The subcutaneous tissues were closed with 2-0 Monocryl.? Vancomycin powder and a Gelfoam thrombin mixture was placed into the wound as well.? The skin was closed with a running 3-0 Monocryl followed by Dermabond Prineo followed by OpSite.? The patient was placed in an abduction pillow.? She was returned the Recovery Room in a satisfactory condition and will be discharged to the floor for postoperative rehabilitation and pain management.? There were no complications or specimens. Related Problem List Diagnoses (1) Primary osteoarthritis of left hip:
[2022-10-07] MEDS: ceFAZolin 2,000 MG in sodium chloride 0.9% (plus) 50 ML 100 MG IV ×2 (13:34→21:09)
--- NOTE | 2022-10-07 17:14 | ANE.PACU2 ---
Inpatient post-anesthesia follow up: Airway intact: Yes Vital signs: Temperature 97.6 F Pulse Rate 70 Respiratory Rate 14 Blood Pressure 147/75 Pulse Oximetry 98 Oxygen Delivery Me thod Nasal Cannula Oxygen Flow Rate 3 Fraction of Inspir ed Oxygen Hydration adequate: Yes Nausea and vomiting: No Pain level: 2 Mental status: Baseline
[2022-10-07] MEDS: chlorhexidine gluconate 0.12% UDC 15 mL MUCOUS MEM ×2 (17:41→21:08)
[2022-10-07] MEDS: sennosides-docusate Tablet 2 TAB PO (17:41)
[2022-10-07] MEDS: iron polysaccharide complex 150 mg Capsule PO (17:42)
[2022-10-07] MEDS: calcium carbonate 500 mg Chew Tablet 1000 MG PO (17:42)
[2022-10-07] MEDS: oxyCODONE 5 mg IR Tab/Cap PO (17:43)
--- NOTE | 2022-10-07 18:34 | PC.NURSE ---
SHIFT SUMMARY PATIENT HAS DONE WELL SINCE SURGERY. DID WELL WITH PHYSICAL THERAPY. GOOD INTAKE AND OUTPUT. PAIN WELL CONTROLLED. CURRENTLY RESTING IN BED.
[2022-10-07] MEDS: clopidogrel 75 mg Tablet PO (21:08)
[2022-10-07] MEDS: levothyroxine 88 mcg Tablet PO (21:08)
[2022-10-07] MEDS: carvedilol 6.25 mg Tablet PO (21:08)
[2022-10-07] MEDS: cyclobenzaprine 10 mg Tablet PO (21:08)
[2022-10-07] MEDS: atorvastatin 40 mg Tablet PO (21:08)
[2022-10-08] VITALS (7 sets, daily range): BP systolic 100–123; BP diastolic 63–66; PULSE 82–88; RESP 16–17; TEMP 36.6–36.9; O2SAT 92–100
[2022-10-08 04:42] LABS: Basophils % 0.1 %; Hemoglobin 10.5 g/dL (11.5-15.3); Lymphocytes % 12.2 %; Mean Corpuscular HGB Conc 31.8 g/dL (30.0-36.0); Mean Corpuscular Hemoglobin 31.8 pg (28.0-34.0); Mean Platelet Volume 12.8 fL (7.4-10.4); Monocytes # 0.9 10^3/uL (0.2-0.9); Monocytes % 10.8 %; Neutrophils % 76.5 %; Nucleated Red Blood Cells % 0 %; Platelet Count 161 10^3/cmm (130-400); Red Cell Distribution Width 12.8 % (12.1-15.1)
[2022-10-08 05:02] LABS: Anion Gap 12.5 (5-19); Blood Urea Nitrogen 9 mg/dL (8-23); Calcium 8.6 mg/dL (8.5-10.5); Carbon Dioxide 27 mmol/L (22-29); Chloride 104 mmol/L (98-107); Glomerular Filtration Rate 99.1 mL/min (90-130); Glucose 123 mg/dL (65-115); Osmolality Calculated 290 mOsm/kg (285-295); Potassium 3.5 mmol/L (3.5-5.1); Sodium 140 mmol/L (136-145)
[2022-10-08] MEDS: acetaminophen 1,000 MG/100 ML PIGGYBACK 400 MG IV (05:38)
[2022-10-08] MEDS: ceFAZolin 2,000 MG in sodium chloride 0.9% (plus) 50 ML 100 MG IV (06:06)
[2022-10-08] MEDS: chlorhexidine gluconate 0.12% UDC 15 mL MUCOUS MEM ×2 (08:09→12:09)
[2022-10-08] MEDS: calcium carbonate 500 mg Chew Tablet 1000 MG PO (08:09)
[2022-10-08] MEDS: aspirin 325 mg EC Tablet PO (08:11)
[2022-10-08] MEDS: multivitamin therapeutic Tablet 1 TAB PO (08:11)
[2022-10-08] MEDS: sennosides-docusate Tablet 2 TAB PO (08:11)
[2022-10-08] MEDS: iron polysaccharide complex 150 mg Capsule PO (08:11)
[2022-10-08] MEDS: cholecalciferol (vitamin D3) 1,000 unit Tablet 1000 UNIT PO (08:26)
[2022-10-08] MEDS: oxyCODONE 5 mg IR Tab/Cap PO (08:26)
--- NOTE | 2022-10-08 13:46 | P.DS_ITS ---
Discharge Providers Date of Admission: 10/07/22 10:16 Date of Discharge: October 08, 2022 Attending Provider at Admission: Edith Driver MD Attending Provider at Discharge: Edith Driver MD Primary Care Provider: ALEXA DAVIS MD Diagnoses at Discharge Discharge Diagnosis (1) Primary osteoarthritis of left hip: Status: Acute (2) History of total left hip arthroplasty: Status: Acute Permanent problem details: Date of procedure: October 07, 2022 Diagnosis: Severe degenerative osteoarthritis left hip with femoral head deformity and large osteophytes. Procedure done: Left total hip arthroplasty Implants: The Edxact total hip system with a size 52 mm by E alpha code Trident II Tritanium acetabular shell with an MDM liner size 42 inner diameter by E alpha code. A size 4 Accolade II 127? neck angle hip stem with a size 28 mm x -2.7 mm Biolox delta ceramic femoral head and a pentecostalism MDM X3 insert size 42E Reason for Visit Reason for Visit: M16.9 Brief History: This is an established 71 year old female patient here today for left total hip arthroplasty.? Previously, she has undergone right total hip arthroplasty uneventfully.? In fact, she is doing very well with her left total hip arthroplasty.? The patient states that she has had pain to the left hip for years. Patient states the majority of the pain is to the left groin. Patient describes the pain as sharp. Patient states the hip causes increased pain with ambulation and weight bearing. Patient states that the hip pain has decreased her daily activities. Patient states that she cannot walk more than 10 feet unassisted before she needs to sit down. Patient states that she utilizes a walker for ambulation.? Risk and complications were discussed with patient, consents were signed and questions were answered.? She wishes to proceed with left total hip arthroplasty. Physical Exam Const: COMMON NORMALS: no acute distress, average body habitus, patient oriented x3 and alert GENERAL APPEARANCE: cooperative and comfortable ORIENTATION/CONSCIOUSNESS: Yes awake HENMT: COMMON NORMALS: normocephalic and atraumatic HEAD & SCALP: normocephalic and atraumatic Eye: GENERAL EYE: appearance normal, both eyes and all related structures Chest: COMMONS NORMALS: normal inspection of the chest Resp: COMMON NORMALS: normal respiratory effort EFFORT & INSPECTION: Yes able to speak in complete sentences and Yes symmetric chest movement Extremity: LEFT LOWER EXTREMITY: Yes hip joint (No significant swelling at the hip joint) Left hip: Yes palpation (Minimal tenderness) and Yes neurovascular exam (Intact distally) Neuro: COMMON NORMALS: patient oriented x3 SENSORIUM/ORIENTATION: Yes alert Psych: COMMON NORMALS: mental status grossly normal APPEARANCE: Yes grossly normal ATTITUDE: Yes calm and Yes engaged ATTENTION/CONCENTRATION: Yes attention grossly intact Skin: COMMON NORMALS: no rashes or lesions noted GENERAL SKIN EXAM: no rashes or lesions noted Urinary Catheter Management: Kern: Cath Placed During This Visit: yes, but has since been removed by the nurse Reason for Continuing Indwelling Catheter: Decision to DC Catheter Urinary Catheter Date of Insertion: 10/07/22 Urinary Catheter Time of Insertion: 08:00 Date Urinary Catheter Removed: 10/08/22 Time Urinary Catheter Discontinued: 06:15 Discharge Data Studies Completed and Pending Completed Studies During Hospitalization Category Date Time Status XR pelvis 1-2V* [id number] Routine Exams 10/07/22 10:57 Completed Pending at discharge Category Date Time Status Complete Blood Count w/Auto AM LABS Lab 10/09/22 04:00 Ordered Complete Blood Count w/Auto AM LABS Lab 10/10/22 04:00 Ordered Radiology Impressions Pelvis X-Ray 10/07/22 10:57 Impression: Recent left hip arthroplasty the usual subcutaneous postsurgical changes Laboratory Results WBC 8.0 10^3/uL (4.0-10.0) 10/08/22 04:00 RBC 3.30 10^6/uL (4.1-5.3) L 10/08/22 04:00 Hgb 10.5 g/dL (11.5-15.3) L 10/08/22 04:00 Hct 33.0 % (37.0-47.0) L 10/08/22 04:00 MCV 100.0 fl (81-99) H 10/08/22 04:00 MCH 31.8 pg (28.0-34.0) 10/08/22 04:00 MCHC 31.8 g/dL (30.0-36.0) 10/08/22 04:00 RDW 12.8 % (12.1-15.1) 10/08/22 04:00 Plt Count 161 10^3/cmm (130-400) 10/08/22 04:00 MPV 12.8 fL (7.4-10.4) H 10/08/22 04:00 Neut % (Auto) 76.5 % 10/08/22 04:00 Lymph % (Auto) 12.2 % 10/08/22 04:00 Briscoe % (Auto) 10.8 % 10/08/22 04:00 Eos % (Auto) 0.0 % 10/08/22 04:00 Baso % (Auto) 0.1 % 10/08/22 04:00 Neut # (Auto) 6.10 10^3/uL (1.8-7.7) 10/08/22 04:00 Lymph # (Auto) 1.0 10^3/uL (0.8-4.8) 10/08/22 04:00 Briscoe # (Auto) 0.9 10^3/uL (0.2-0.9) 10/08/22 04:00 Eos # (Auto) 0.0 10^3/uL (0.0-0.8) 10/08/22 04:00 Baso # (Auto) 0.0 10^3/uL (0.0-0.1) 10/08/22 04:00 Nucleated RBC % (auto) 0 % 10/08/22 04:00 Nucleated RBCs # 0.0 /100WBC 10/08/22 04:00 Sodium 140 mmol/L (136-145) 10/08/22 04:00 Potassium 3.5 mmol/L (3.5-5.1) 10/08/22 04:00 Chloride 104 mmol/L (98-107) 10/08/22 04:00 Carbon Dioxide 27 mmol/L (22-29) 10/08/22 04:00 Anion Gap 12.5 (5-19) 10/08/22 04:00 BUN 9 mg/dL (8-23) 10/08/22 04:00 Creatinine 0.6 mg/dL (0.5-0.9) 10/08/22 04:00 GFR Calculation 99.1 mL/min (90-130) 10/08/22 04:00 Glucose 123 mg/dL (65-115) H 10/08/22 04:00 Calculated Osmolality 290 mOsm/kg (285-295) 10/08/22 04:00 Calcium 8.6 mg/dL (8.5-10.5) 10/08/22 04:00 Vitals Last Vital Signs Temp 97.8 F 10/08/22 12:00 Pulse 88 10/08/22 12:00 Resp 17 10/08/22 12:00 BP 123/66 10/08/22 12:00 Pulse Ox 92 10/08/22 12:00 O2 Del Method Room Air 10/08/22 12:00 O2 Flow Rate 3 10/07/22 11:20 Discharge Plan Discharge Patient Disposition: Home Condition: Stable Prescriptions: New acetaminophen 500 mg Tablet 1,000 mg PO Q8H 15 Days Qty: 90 0RF aspirin 325 mg Tablet,Delayed Release (Dr/Ec) 325 mg PO DAILY 30 Days Qty: 30 0RF Continued atorvastatin 40 mg tablet 40 mg PO BEDTIME clopidogrel 75 mg tablet 75 mg PO BEDTIME levothyroxine 88 mcg capsule 88 mcg PO BEDTIME carvedilol 6.25 mg tablet 6.25 mg PO BEDTIME Rx Instructions: must administer with a meal/food cyclobenzaprine 10 mg tablet 10 mg PO BEDTIME Held aspirin 81 mg tablet,delayed release (DR/EC) 81 mg PO DAILY Hold Instructions: Resume on 11/05/22. May resume after full-strength daily aspirin x30 days Discharge Orders: Discharge Order (Routine); Ordered 10/08/22 Ordered By: Edith Driver Referrals: Edith Driver MD [Physician] - 10/29/22 9:30 am Discharge Diet: Advance as tolerated and Usual diet Discharge Activity: Increase activity as tolerated, Limit activity as instructed, Use walker/crutches as instructed and As per PT/OT instructions Patient Instructions: Total Hip Replacement (GEN), Hip Abduction Pillow (DC), Joint Replacement Stoplight, Opioid Safety Activity Restrictions/Additional Instructions: Ice to left hip. Hip precautions as educated. You may weight-bear as tolerated. Maintain dressing until it comes off on its own. Follow-up as scheduled. Discharge Attestations Time Spent in Discharge Care*: greater than 30 min Specific Discharge Activities: educating patient, documenting/other paperwork and evaluating patient/reviewing data Quality Metrics Clinical Quality Measures [ No reported AMI, CVA or VTE this stay] Coding Level of Care Code Acute Code for [facility] Fwd Diagnoses Primary osteoarthritis of left hip M16.12 History of total left hip arthroplasty Z96.642
== END 2022-10-08 14:39 | disposition home or self-care (01) ==
LOC: MEDSURG 10:16
PROVIDERS: Admitting Provider Specialist; PCP Family Medicine; Visit Provider Specialist
PROC: (CPT 27130; principal; 2022-10-07 07:00)
DX: M16.12 Unilateral primary osteoarthritis, left hip (principal); Z96.641 Presence of right artificial hip joint; Z79.02 Long term (current) use of antithrombotics/antiplatelets; Z79.82 Long term (current) use of aspirin; E78.5 Hyperlipidemia, unspecified; E03.9 Hypothyroidism, unspecified; Z87.891 Personal history of nicotine dependence
CPT/HCPCS: 27130; 36415; 51702; 72170; 80048; 85025; 93005; 97110; 97116; 97161; 97165; 97530; A9281; C1776; G0378; J0131; J0690; J1100; J1170; J2370; J2405; J2704; J3010; J3370; J3490; J7030

== ENCOUNTER → 2022-10-29 14:56 | Outpatient (BNVA) | payer MEDICARE, SELFPAY | PROVIDERS: PCP Family Medicine; Visit Provider Nurse Practitioner Family | DX: Z96.642 Presence of left artificial hip joint (principal) | CPT/HCPCS: 73502; 99024 ==